=== PATIENT | male | born 2000 | race Caucasian/White ===

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

== ENCOUNTER 2020-02-10 15:40 | Outpatient (CLI) | payer OTHER | END 2020-02-10 15:41 | disposition EMS.NT | LOC: EMS 15:40 | PROVIDERS: ATTEND Surgery | DX: F41.9 Anxiety disorder, unspecified (principal); R10.9 Unspecified abdominal pain ==

== ENCOUNTER 2020-02-20 00:47 | Outpatient (CLI) | payer SELFPAY | END 2020-02-20 00:48 | disposition EMS.NT | LOC: EDSEX → EMS 00:47 | PROVIDERS: ATTEND Surgery | DX: F41.9 Anxiety disorder, unspecified (principal) ==

== ENCOUNTER 2020-02-20 14:25 | Outpatient (CLI) | payer MEDICAID | END 2020-02-20 14:26 | disposition critical access hospital (66) | LOC: EMS 14:25 | PROVIDERS: ATTEND Surgery | DX: K92.1 Melena (principal); R10.31 Right lower quadrant pain | CPT/HCPCS: A0425; A0429 ==

== ENCOUNTER 2020-02-20 14:45 | Emergency (ER) | payer MEDICAID ==
--- NOTE | 2020-02-20 14:56 | ED Physician Documentation ---
PD HPI ABD PAIN - Stated complaint Stated Complaint: BLOOD IN STOOL - Chief complaint Chief Complaint: Abd Pain - History obtained from History obtained from: Patient, EMS - History of Present Illness Timing - onset: Other (For the last 2 weeks she has had a small amount of bright red blood per rectum associated with hard stools. Mild lower abdominal pain. No fevers or chills. No nausea. She is never had this before. 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 : None HEENT: None Psych: Depression, Anxiety, Other Musculoskeletal: None Derm: None - Past Surgical History Past Surgical History: No - Present Medications Home Medications: Ambulatory Orders Medication Instructions Recorded Confirmed Melatonin 1 mg PO DAILY PM 02/11/18 04/26/18 Amantadine HCl [Amantadine] 100 mg PO BID 03/17/18 04/26/18 Gabapentin 300 mg PO BID 03/17/18 04/26/18 Bupropion HCl [Bupropion Xl] 150 mg PO DAILY 04/26/18 04/26/18 OLANZapine [Olanzapine] 5 mg PO QPM 04/26/18 04/26/18 Docusate Sodium 100 mg PO BID #120 capsule 02/20/20 - Allergies Allergies/Adverse Reactions: Allergies Allergy/AdvReac Type Severity Reaction Status Date / Time nut - unspecified Allergy Edema Verified 08/20/19 22:56 - Social History Does the pt smoke?: No Smoking Status: Never smoker Does the pt drink ETOH?: No Does the pt have substance abuse?: No - Immunizations Immunizations are current?: Yes - POLST Patient has POLST: No POLST Status: Full Code PD ED PE NORMAL - Vitals Vital signs reviewed: Yes - General General: Other (She is quite anxious with poor eye contact.) - HEENT HEENT: PERRL - Neck Neck: Supple, no meningeal sign, No bony TTP - Cardiac Cardiac: RRR, No murmur - Abdomen Abdomen: Soft, Non tender - Back Back: No CVA TTP, No spinal TTP - Derm Derm: Normal color, Warm and dry - Extremities Extremities: No edema, No calf tenderness / cord - Neuro Neuro: Alert and oriented X 3, No motor deficit, No sensory deficit, Normal speech - Psych Psych: Other (Very anxious with poor eye contact) Results - Vitals Vitals: Vital Signs - 24 hr 02/20/20 02/20/20 14:51 15:55 Temperature 36.8 C Heart Rate 109 H 73 Respiratory 18 22 Rate Blood Pressure 138/81 H 132/77 H O2 Saturation 100 100 Oxygen O2 Source Room air - Labs Labs: Laboratory Tests 02/20/20 02/20/20 02/20/20 15:10 15:10 15:10 WBC 7.3 RBC 5.14 Hgb 12.7 Hct 39.9 MCV 77.6 L MCH 24.7 L MCHC 31.8 L RDW 14.8 Plt Count 224 MPV 10.2 Neut # (Auto) 4.8 Lymph # (Auto) 1.7 [place] # (Auto) 0.4 Eos # (Auto) 0.3 Baso # (Auto) 0.1 Absolute Nucleated RBC 0.00 Nucleated RBC % 0.0 Sodium 137 Potassium 3.6 Chloride 106 Carbon Dioxide 20 L Anion Gap 11.0 BUN 7 Creatinine 0.8 Estimated GFR (MDRD) 92 Glucose 89 Calcium 9.1 Total Bilirubin 0.7 AST 17 ALT < 10 L Alkaline Phosphatase 56 Total Protein 7.8 Albumin 4.6 Globulin 3.2 Albumin/Globulin Ratio 1.4 Lipase 30 TSH Urine Color Urine Clarity Urine pH Ur Specific [place] Urine Protein Urine Glucose (UA) Urine Ketones Urine Occult Blood Urine Nitrite Urine Bilirubin Urine Urobilinogen Ur Leukocyte Esterase Ur Microscopic Review Urine Culture Comments Urine HCG, Qual Salicylates < 6.0 Urine Opiates Screen Ur Oxycodone Screen Urine Methadone Screen Ur Propoxyphene Screen Acetaminophen < 10 L Ur Barbiturates Screen Ur Tricyclics Screen Ur Phencyclidine Scrn Ur Amphetamine Screen U Methamphetamines Scrn U Benzodiazepines Scrn Urine Cocaine Screen U Cannabinoids Screen Ethyl Alcohol < 5.0 02/20/20 02/20/20 15:10 16:35 WBC RBC Hgb Hct MCV MCH MCHC RDW Plt Count MPV Neut # (Auto) Lymph # (Auto) [place] # (Auto) Eos # (Auto) Baso # (Auto) Absolute Nucleated RBC Nucleated RBC % Sodium Potassium Chloride Carbon Dioxide Anion Gap BUN Creatinine Estimated GFR (MDRD) Glucose Calcium Total Bilirubin AST ALT Alkaline Phosphatase Total Protein Albumin Globulin Albumin/Globulin Ratio Lipase TSH 1.99 Urine Color LT. YELLOW Urine Clarity CLEAR Urine pH 7.0 Ur Specific [place] <=1.005 Urine Protein NEGATIVE Urine Glucose (UA) NEGATIVE Urine Ketones NEGATIVE Urine Occult Blood NEGATIVE Urine Nitrite NEGATIVE Urine Bilirubin NEGATIVE Urine Urobilinogen 0.2 (NORMAL) Ur Leukocyte Esterase NEGATIVE Ur Microscopic Review NOT INDICATED Urine Culture Comments NOT INDICATED Urine HCG, Qual NEGATIVE Salicylates Urine Opiates Screen NEGATIVE Ur Oxycodone Screen NEGATIVE Urine Methadone Screen NEGATIVE Ur Propoxyphene Screen NEGATIVE Acetaminophen Ur Barbiturates Screen NEGATIVE Ur Tricyclics Screen NEGATIVE Ur Phencyclidine Scrn NEGATIVE Ur Amphetamine Screen NEGATIVE U Methamphetamines Scrn NEGATIVE U Benzodiazepines Scrn NEGATIVE Urine Cocaine Screen NEGATIVE U Cannabinoids Screen NEGATIVE Ethyl Alcohol PD MEDICAL DECISION MAKING - ED course ED course: This is a young woman with bright red blood per rectum, benign history. We will check blood work. It is associated with constipation so that is likely causative. I went to talk to her about discharging her and the follow-up plan. Despite already having had some Ativan she was having an overt panic attack. We talked about options for that. She is going to [facility] for intensive therapy but she does not feel like it is helping. She seems awfully dysfunctional and I will asked the social insurance analyst to talk to her about hospitalization. Subsequent to social work evaluation patient agreed to voluntary hospitalist for her at [facility] and cobras were completed. She is stable for transport for psychiatric care. Departure - Departure Disposition: 65 Psych Hosp/Unit DC/Xfer Clinical Impression: Hematochezia, Depression with anxiety Constipation Qualifiers: Constipation type: slow transit constipation Qualified Code(s): K59.01 - Slow transit constipation Condition: Stable Record reviewed to determine appropriate education?: Yes Instructions: ED Constipation Prescriptions: Docusate Sodium 100 mg PO BID #120 capsule Comments: Most cases of what you are describing are due to constipation. I am prescribing a stool softener and you need to drink plenty of water. Return for worsening symptoms. You will need to follow-up with your primary care physician for referral for colonoscopy.
[2020-02-20] MEDS: LORazepam 1 MG TABLET PO STA (14:59)
[2020-02-20 15:14] LABS: BASOPHILS # (AUTO) 0.1 10^3/uL (0.0-0.1); BASOPHILS % (AUTO) 0.8 %; EOSINOPHILS # (AUTO) 0.3 10^3/uL (0.0-0.7); EOSINOPHILS % (AUTO) 4.1 %; HGB - HEMOGLOBIN 12.7 g/dL (12.0-16.0); LYMPHOCYTES # (AUTO) 1.7 10^3/uL (1.5-3.5); LYMPHOCYTES % (AUTO) 23.8 %; MEAN CORPUSCULAR HEMOGLOBIN 24.7 pg (27.0-31.0); MEAN CORPUSCULAR HGB CONC 31.8 g/dL (32.0-36.0); MEAN CORPUSCULAR VOLUME 77.6 fL (81.0-99.0); MEAN PLATELET VOLUME 10.2 fL (7.4-11.4); MONOCYTES # (AUTO) 0.4 10^3/uL (0.0-1.0); MONOCYTES % (AUTO) 5.6 %; NEUTROPHILS # (AUTO) 4.8 10^3/uL (1.5-6.6); NEUTROPHILS % (AUTO) 65.6 %; PLT - PLATELET COUNT 224 10^3/uL (130-450); RED BLOOD COUNT 5.14 10^6/uL (4.70-6.10); RED CELL DISTRIBUTION WIDTH 14.8 % (12.0-15.0); WHITE BLOOD COUNT 7.3 x10^3/uL (4.8-10.8)
[2020-02-20 15:28] LABS: ALBUMIN 4.6 g/dL (3.2-5.5); ALBUMIN/GLOBULIN RATIO 1.4 (1.0-2.2); ALKALINE PHOSPHATASE 56 IU/L (42-121); ALT ALANINE AMINOTRANSFERASE < 10 IU/L (10-60); AST ASPARTATE AMINOTRANSFERASE 17 IU/L (10-42); BILIRUBIN,TOTAL 0.7 mg/dL (0.2-1.0); BUN - BLOOD UREA NITROGEN 7 mg/dL (6-20); CALCIUM 9.1 mg/dL (8.5-10.3); CARBON DIOXIDE - CO2 20 mmol/L (21-32); CHLORIDE 106 mmol/L (101-111); CREATININE 0.8 mg/dL (0.4-1.0); GLUCOSE 89 mg/dL (70-100); LIPASE 30 U/L (22-51); SODIUM 137 mmol/L (135-145); TOTAL PROTEIN 7.8 g/dL (6.7-8.2)
[2020-02-20 15:58] LABS: ACETAMINOPHEN < 10 ug/mL (10-30); SALICYLATE < 6.0 mg/dL
[2020-02-20] MEDS: OLANZapine 10 MG VIAL IM STA (16:01)
[2020-02-20 16:43] LABS: MUDS CUTOFF CONCENTRATIONS CUTOFF CONC BELOW:
[2020-02-20 16:50] LABS: BILIRUBIN,URINE NEGATIVE (NEGATIVE); GLUCOSE, URINE (UA) NEGATIVE (NEGATIVE); KETONES,URINE (UA) NEGATIVE (NEGATIVE); LEUKOCYTE ESTERASE, URINE NEGATIVE (NEGATIVE); NITRITE,URINE NEGATIVE (NEGATIVE); OCCULT BLOOD,URINE NEGATIVE (NEGATIVE); PROTEIN,URINE NEGATIVE (NEGATIVE); UROBILINOGEN,URINE 0.2 (NORMAL) E.U./dL (NORMAL)
[2020-02-20 16:59] LABS: AMPHETAMINE SCREEN,URINE NEGATIVE (NEGATIVE); BENZODIAZEPINES SCREEN, URINE NEGATIVE (NEGATIVE); CLARITY,URINE CLEAR (CLEAR); COCAINE SCREEN URINE NEGATIVE (NEGATIVE); HCG UR QUAL NEGATIVE; METHADONE SCREEN, URINE NEGATIVE (NEGATIVE); METHAMPHETAMINES SCREEN, URINE NEGATIVE (NEGATIVE); OPIATE SCREEN, URINE NEGATIVE (NEGATIVE); OXYCODONE SCREEN, URINE NEGATIVE (NEGATIVE); PROPOXYPHENE SCREEN, URINE NEGATIVE (NEGATIVE); TRICYCLIC ANTIDEPRESSANT,URINE NEGATIVE (NEGATIVE)
[2020-02-20 22:15] VITALS: BP 129/84
== END 2020-02-21 00:10 ==
LOC: EDSEX → EDUNIT# → ED 14:45
DX: K92.1 Melena (principal); F32.9 Major depressive disorder, single episode, unspecified; F41.9 Anxiety disorder, unspecified; K59.01 Slow transit constipation
CPT/HCPCS: 36415; 80053; 80306; 80307; 80320; 80329; 81003; 81025; 83690; 84443; 85025; 96372; 99283; 99285; J8499; 81001; 87086

== ENCOUNTER 2020-07-14 21:58 | Outpatient (CLI) | payer MEDICAID | END 2020-07-14 21:59 | disposition critical access hospital (66) | LOC: EMS 21:58 | PROVIDERS: ATTEND Surgery | DX: R46.89 Other symptoms and signs involving appearance and behavior (principal) | CPT/HCPCS: A0425; A0429; A0999 ==

== ENCOUNTER 2020-07-14 22:03 | Emergency (ER) | payer MEDICAID ==
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
[2020-07-14] MEDS ORDERED: LORazepam 1 MG TABLET PO STA (22:30)
[2020-07-14] MEDS ORDERED: diphenhydrAMINE INJ 50 MG/ML VIAL IM STA (23:09)
[2020-07-14] MEDS ORDERED: HALOPERIDOL 5 MG/ML VIAL IM STA (23:09)
[2020-07-14] MEDS ORDERED: LORazepam 2 MG/ML VIAL IM STA (23:09)
[2020-07-14 23:27] LABS: MUDS CUTOFF CONCENTRATIONS CUTOFF CONC BELOW:
[2020-07-14 23:28] LABS: BILIRUBIN,URINE NEGATIVE (NEGATIVE); GLUCOSE, URINE (UA) NEGATIVE (NEGATIVE); KETONES,URINE (UA) NEGATIVE (NEGATIVE); LEUKOCYTE ESTERASE, URINE NEGATIVE (NEGATIVE); NITRITE,URINE NEGATIVE (NEGATIVE); OCCULT BLOOD,URINE NEGATIVE (NEGATIVE); PH,URINE 6.5 PH (5.0-7.5); PROTEIN,URINE NEGATIVE (NEGATIVE); UROBILINOGEN,URINE 0.2 (NORMAL) E.U./dL (NORMAL)
[2020-07-14 23:30] LABS: CLARITY,URINE CLEAR (CLEAR)
[2020-07-14 23:40] LABS: AMPHETAMINE SCREEN,URINE NEGATIVE (NEGATIVE); BENZODIAZEPINES SCREEN, URINE NEGATIVE (NEGATIVE); COCAINE SCREEN URINE NEGATIVE (NEGATIVE); METHADONE SCREEN, URINE NEGATIVE (NEGATIVE); METHAMPHETAMINES SCREEN, URINE NEGATIVE (NEGATIVE); OPIATE SCREEN, URINE NEGATIVE (NEGATIVE); OXYCODONE SCREEN, URINE NEGATIVE (NEGATIVE); PROPOXYPHENE SCREEN, URINE NEGATIVE (NEGATIVE); TRICYCLIC ANTIDEPRESSANT,URINE POSITIVE (NEGATIVE)
[2020-07-15 00:24] LABS: HGB - HEMOGLOBIN 11.8 g/dL (12.0-16.0); LYMPHOCYTES # (AUTO) 1.8 10^3/uL (1.5-3.5); LYMPHOCYTES % (AUTO) 25.7 %; MEAN CORPUSCULAR HGB CONC 33.4 g/dL (32.0-36.0); MEAN CORPUSCULAR VOLUME 74.8 fL (81.0-99.0); MEAN PLATELET VOLUME 9.3 fL (7.9-10.8); MONOCYTES # (AUTO) 0.5 10^3/uL (0.0-1.0); MONOCYTES % (AUTO) 7.5 %; NEUTROPHILS # (AUTO) 4.6 10^3/uL (1.5-6.6); NEUTROPHILS % (AUTO) 66.5 %; PLT - PLATELET COUNT 197 10^3/uL (130-450); RED BLOOD COUNT 4.72 10^6/uL (4.20-5.40); RED CELL DISTRIBUTION WIDTH 13.8 % (12.0-15.0); WHITE BLOOD COUNT 6.9 x10^3/uL (4.8-10.8)
[2020-07-15 00:38] LABS: ACETAMINOPHEN < 10 ug/mL (10-30); ALBUMIN 4.2 g/dL (3.2-5.5); ALBUMIN/GLOBULIN RATIO 1.8 (1.0-2.2); ALKALINE PHOSPHATASE 45 IU/L (42-121); ALT ALANINE AMINOTRANSFERASE < 10 IU/L (10-60); AST ASPARTATE AMINOTRANSFERASE 12 IU/L (10-42); BILIRUBIN,TOTAL 0.2 mg/dL (0.2-1.0); BUN - BLOOD UREA NITROGEN 8 mg/dL (6-20); CARBON DIOXIDE - CO2 22 mmol/L (21-32); CHLORIDE 109 mmol/L (101-111); CK- CREATINE KINASE 92 IU/L (22-269); CREATININE 0.7 mg/dL (0.4-1.0); GLUCOSE 92 mg/dL (70-100); LIPASE 28 U/L (22-51); SALICYLATE < 6.0 mg/dL; SODIUM 139 mmol/L (135-145); TOTAL PROTEIN 6.5 g/dL (6.7-8.2)
[2020-07-15 06:44] VITALS: BP 115/67
== END 2020-07-15 07:03 | disposition home or self-care (01) ==
LOC: EDSEX → EDUNIT# → ED 22:03
DX: F41.9 Anxiety disorder, unspecified (principal); F91.9 Conduct disorder, unspecified; F84.0 Autistic disorder
CPT/HCPCS: 36415; 80053; 80306; 80307; 80320; 80329; 81003; 82550; 83690; 84443; 85025; 96372; 99281; 99284; J1200; J2060; J8499; 81001; 87086

== ENCOUNTER 2021-05-13 01:29 | Outpatient (CLI) | payer MEDICAID | END 2021-05-13 01:30 | disposition critical access hospital (66) | LOC: EMS 01:29 | DX: R00.0 Tachycardia, unspecified (principal); R06.02 Shortness of breath; F41.9 Anxiety disorder, unspecified | CPT/HCPCS: A0425; A0427; A0999 ==

== ENCOUNTER 2021-05-13 01:42 | Emergency (ER) | payer MEDICAID ==
--- NOTE | 2021-05-13 01:55 | ED Physician Documentation ---
History of Present Illness - Stated complaint Stated Complaint: ANXIETY/RHR - Chief complaint Chief Complaint: General - History obtained from History obtained from: Patient - History of Present Illness Timing: Enter time (00:30), Today Pain level max: 0 Pain level now: 0 Improved by: nothing Worsened by: no exacerbating factors - Additonal information Additional information: presents due to sudden onset rapid palpitations at approximately 12:30 this morning while getting ready for bed. Mild dyspnea. Has had similar episodes in the past and she feels this is due to anxiety. Review of Systems Constitutional: denies: Fever Cardiac: reports: Palpitations. denies: Chest pain / pressure, Pedal edema, Calf pain Respiratory: reports: Dyspnea. 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 HEENT: None Psych: Depression, Anxiety, Panic attacks, ADD/ADHD, Other Musculoskeletal: None Derm: None - Past Surgical History Past Surgical History: No - Present Medications Home Medications: Ambulatory Orders Medication Instructions Recorded Confirmed Melatonin 1 mg PO DAILY PM 02/11/18 04/26/18 Amantadine HCl [Amantadine] 100 mg PO BID 03/17/18 04/26/18 Gabapentin 300 mg PO BID 03/17/18 04/26/18 OLANZapine [Olanzapine] 5 mg PO QPM 04/26/18 04/26/18 buPROPion HCL [Bupropion Xl] 150 mg PO DAILY 04/26/18 04/26/18 Docusate Sodium 100 mg PO BID #120 capsule 02/20/20 QUEtiapine [SEROquel] 07/14/20 - Allergies Allergies/Adverse Reactions: Allergies Allergy/AdvReac Type Severity Reaction Status Date / Time nut - unspecified Allergy Edema Verified 05/13/21 01:45 - Social History Does the pt smoke?: No Smoking Status: Never smoker Does the pt drink ETOH?: No Does the pt have substance abuse?: Yes Substance Use and Type: Marijuana - Immunizations Immunizations are current?: Yes - POLST Patient has POLST: No POLST Status: Full Code PD ED PE NORMAL - Vitals Vital signs reviewed: Yes - General General: Alert and oriented X 3, No acute distress, Well developed/nourished - HEENT HEENT: Moist mucous membranes - Neck Neck: Supple, no meningeal sign - Cardiac Cardiac: No murmur, No gallop, No rub - Respiratory Respiratory: No respiratory distress, Clear bilaterally - Abdomen Abdomen: Soft, Non tender - Extremities Extremities: No edema PD ED PE EXPANDED - Cardiac Cardiac: Tachy, Regular Rhythm Results - Vitals Vitals: Oxygen O2 Source Room air - EKG (time done) No standard instances Rate: Rate (enter#) (103), Tachy Rhythm: Sinus tachycardia [place] Lin: Normal Intervals: Normal [place] QRS: Normal Ischemia: Normal ST segments - Labs Labs: Laboratory Tests 05/13/21 05/13/21 05/13/21 02:30 02:30 02:30 WBC 3.1 L RBC 4.40 Hgb 11.3 L Hct 34.0 L MCV 77.3 L MCH 25.7 L MCHC 33.2 RDW 13.4 Plt Count 150 MPV 9.6 Neut # (Auto) 1.9 Lymph # (Auto) 1.0 [place] # (Auto) 0.2 Eos # (Auto) 0.0 Baso # (Auto) 0.0 Absolute Nucleated RBC 0.00 Nucleated RBC % 0.0 Sodium 137 Potassium 3.6 Chloride 106 Carbon Dioxide 23 Anion Gap 8.0 BUN 13 Creatinine 0.9 Estimated GFR (MDRD) 80 L Glucose 111 H Calcium 8.2 L TSH 3.30 PD MEDICAL DECISION MAKING - ED course Complexity details: reviewed results, re-evaluated patient, considered differential, d/w patient Departure - Departure Disposition: 01 Home, Self Care Clinical Impression: Anxiety, Tachycardia Condition: Good Instructions: ED Panic Attack Comments: Follow up with your primary care provider; further testing might be necessary regarding the fast heart rate. Discharge Date/Time: 05/13/21 03:59
[2021-05-13] MEDS ORDERED: SODIUM CHLORIDE 0.9% 1,000 ML IV STA (02:14)
[2021-05-13] MEDS ORDERED: LORazepam 2 MG/ML VIAL IVP STA (02:14)
[2021-05-13 02:37] LABS: HGB - HEMOGLOBIN 11.3 g/dL (12.0-16.0); LYMPHOCYTES % (AUTO) 32.9 %; MEAN CORPUSCULAR HEMOGLOBIN 25.7 pg (27.0-31.0); MEAN CORPUSCULAR HGB CONC 33.2 g/dL (32.0-36.0); MEAN CORPUSCULAR VOLUME 77.3 fL (81.0-99.0); MEAN PLATELET VOLUME 9.6 fL (7.9-10.8); MONOCYTES # (AUTO) 0.2 10^3/uL (0.0-1.0); MONOCYTES % (AUTO) 6.4 %; NEUTROPHILS # (AUTO) 1.9 10^3/uL (1.5-6.6); NEUTROPHILS % (AUTO) 60.4 %; PLT - PLATELET COUNT 150 10^3/uL (130-450); RED CELL DISTRIBUTION WIDTH 13.4 % (12.0-15.0); WHITE BLOOD COUNT 3.1 x10^3/uL (4.8-10.8)
[2021-05-13 02:43] LABS: CALCIUM 8.2 mg/dL (8.5-10.3); CREATININE 0.9 mg/dL (0.4-1.0); POTASSIUM 3.6 mmol/L (3.5-5.0)
[2021-05-13 03:33] VITALS: BP 113/73
== END 2021-05-13 03:59 | disposition home or self-care (01) ==
LOC: EDUNIT# → ED 01:42
DX: R00.0 Tachycardia, unspecified (principal); F41.9 Anxiety disorder, unspecified
CPT/HCPCS: 36415; 80048; 84443; 85025; 93005; 96374; 99283; 99284; J2060

== ENCOUNTER 2021-06-22 08:00 | Outpatient (CLI) | payer MEDICAID ==
[2021-06-22 09:05] LABS: MUDS CUTOFF CONCENTRATIONS CUTOFF CONC BELOW:
[2021-06-22 11:43] LABS: HCT - HEMATOCRIT 36.3 % (37.0-47.0); HGB - HEMOGLOBIN 11.9 g/dL (12.0-16.0); LYMPHOCYTES # (AUTO) 1.4 10^3/uL (1.5-3.5); LYMPHOCYTES % (AUTO) 40.3 %; MEAN CORPUSCULAR HEMOGLOBIN 25.5 pg (27.0-31.0); MEAN CORPUSCULAR HGB CONC 32.8 g/dL (32.0-36.0); MEAN CORPUSCULAR VOLUME 77.9 fL (81.0-99.0); MEAN PLATELET VOLUME 10.3 fL (7.9-10.8); MONOCYTES # (AUTO) 0.3 10^3/uL (0.0-1.0); MONOCYTES % (AUTO) 8.5 %; NEUTROPHILS # (AUTO) 1.8 10^3/uL (1.5-6.6); NEUTROPHILS % (AUTO) 51.2 %; PLT - PLATELET COUNT 165 10^3/uL (130-450); RED BLOOD COUNT 4.66 10^6/uL (4.20-5.40); RED CELL DISTRIBUTION WIDTH 13.7 % (12.0-15.0); WHITE BLOOD COUNT 3.5 x10^3/uL (4.8-10.8)
[2021-06-22 11:57] LABS: THC CANNABINOID SCREEN, URINE POSITIVE (NEGATIVE)
[2021-06-22 11:58] LABS: AMPHETAMINE SCREEN,URINE NEGATIVE (NEGATIVE); BARBITURATE SCREEN,UR NEGATIVE (NEGATIVE); BENZODIAZEPINES SCREEN, URINE NEGATIVE (NEGATIVE); COCAINE SCREEN URINE NEGATIVE (NEGATIVE); METHADONE SCREEN, URINE NEGATIVE (NEGATIVE); METHAMPHETAMINES SCREEN, URINE NEGATIVE (NEGATIVE); OPIATE SCREEN, URINE NEGATIVE (NEGATIVE); OXYCODONE SCREEN, URINE NEGATIVE (NEGATIVE); PROPOXYPHENE SCREEN, URINE NEGATIVE (NEGATIVE); TRICYCLIC ANTIDEPRESSANT,URINE POSITIVE (NEGATIVE)
[2021-06-22 12:32] LABS: ALBUMIN 4.1 g/dL (3.2-5.5); ALBUMIN/GLOBULIN RATIO 1.6 (1.0-2.2); ALKALINE PHOSPHATASE 44 IU/L (42-121); ALT ALANINE AMINOTRANSFERASE < 10 IU/L (10-60); AST ASPARTATE AMINOTRANSFERASE 14 IU/L (10-42); BILIRUBIN,TOTAL 0.4 mg/dL (0.2-1.0); BUN - BLOOD UREA NITROGEN 10 mg/dL (6-20); CALCIUM 9.2 mg/dL (8.5-10.3); CARBON DIOXIDE - CO2 24 mmol/L (21-32); CHLORIDE 106 mmol/L (101-111); CREATININE 0.8 mg/dL (0.4-1.0); GFR - MDRD 91 (>89); GLUCOSE 84 mg/dL (70-100); POTASSIUM 3.7 mmol/L (3.5-5.0); SODIUM 140 mmol/L (135-145); TOTAL PROTEIN 6.7 g/dL (6.7-8.2)
[2021-06-22 12:33] LABS: THYROID STIMULATING HORMONE 4.94 uIU/mL (0.34-5.60)
== END 2021-06-22 23:59 | disposition home or self-care (01) ==
LOC: LAB.WCP 08:00
PROVIDERS: ATTEND Family Medicine
DX: R00.2 Palpitations (principal)
CPT/HCPCS: 36415; 80053; 80306; 83735; 84443; 85025

== ENCOUNTER 2021-06-29 16:14 | Outpatient (CLI) | payer MEDICAID | END 2021-06-29 16:15 | disposition critical access hospital (66) | LOC: EMS 16:14 | DX: T23.052A Burn of unspecified degree of left palm, initial encounter (principal); T23.042A Burn of unspecified degree of multiple left fingers (nail), including thumb, initial encounter; X15.3XXA Contact with hot saucepan or skillet, initial encounter; Y93.G3 Activity, cooking and baking; Y92.000 Kitchen of unspecified non-institutional (private) residence as the place of occurrence of the external cause | CPT/HCPCS: A0425; A0427; A0999 ==

== ENCOUNTER 2021-06-29 16:29 | Emergency (ER) | payer MEDICAID ==
[2021-06-29] MEDS ORDERED: BACITRACIN ZINC OINT 1 PACKET TOP STA (16:32)
[2021-06-29] MEDS ORDERED: HYDROmorphone 2 MG/ML VIAL IVP STA (16:32)
[2021-06-29] MEDS ORDERED: KETOROLAC 15 MG/ML VIAL IVP STA (16:32)
[2021-06-29] MEDS ORDERED: TETANUS/DIPHTHERIA/PERTUSSIS 0.5 ML SYRINGE IM ONE (16:32)
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
[2021-06-29 17:37] VITALS: BP 134/84
== END 2021-06-29 17:37 | disposition home or self-care (01) ==
LOC: EDUNIT# → ED 16:29
DX: T23.252A Burn of second degree of left palm, initial encounter (principal); X15.3XXA Contact with hot saucepan or skillet, initial encounter; Y93.G3 Activity, cooking and baking; Z23 Encounter for immunization
CPT/HCPCS: 90471; 90715; 96374; 96375; 99283; A9270; J1170

== ENCOUNTER 2021-08-26 12:05 | Outpatient (CLI) | payer MEDICAID | END 2021-08-26 12:06 | disposition critical access hospital (66) | LOC: EMS 12:05 | DX: Z00.8 Encounter for other general examination (principal); R44.3 Hallucinations, unspecified | CPT/HCPCS: A0425; A0429; A0999 ==

== ENCOUNTER 2021-08-26 12:25 | Emergency (ER) | payer MEDICAID ==
--- NOTE | 2021-08-26 12:51 | ED Physician Documentation ---
History of Present Illness - Stated complaint Stated Complaint: MHE - Chief complaint Chief Complaint: General - Additonal information Additional information: Sawyer is a 20-year-old female with a past medical history of autism, anxiety and behavioral disorder who presents stating that she just cannot stop hitting herself and damaging things. She broke her phone and states that she has been scratching her arms and hitting herself in the face and her mom told her she needed to go to the hospital. She states her mom is refusing to have her come back home and she does not know what to do. She She is not suicidal but cannot stop hitting herself. She has required inpatient mental health treatment in the past and is followed outpatient by mental health provider. She is on Seroquel and guanfacine which she said Is compliant with. Denies any other drugs or alcohol. States that she is safe at home and no one is hurting her, she is scratching and hitting herself. 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 : None HEENT: None Psych: Depression, Anxiety, Bipolar disorder, Panic attacks, ADD/ADHD, Other Musculoskeletal: None Derm: None Other Past Medical History: autism - Past Surgical History Past Surgical History: No - Present Medications Home Medications: Ambulatory Orders Medication Instructions Recorded Confirmed Ferrous Sulfate 325 mg PO DAILY 08/26/21 08/26/21 Guanfacine HCl [Intuniv] 1 mg PO BID 08/26/21 08/26/21 LORazepam [Ativan] 0.5 mg PO BID #6 tablet 08/26/21 Melatonin 5 mg PO DAILY 08/26/21 08/26/21 Quetiapine Fumarate [Seroquel] 200 mg PO HS 08/26/21 08/26/21 - Allergies Allergies/Adverse Reactions: Allergies Allergy/AdvReac Type Severity Reaction Status Date / Time nut - unspecified Allergy Edema Verified 08/26/21 12:40 - Social History Does the pt smoke?: No Smoking Status: Never smoker Does the pt drink ETOH?: No Does the pt have substance abuse?: Yes Substance Use and Type: Marijuana - Immunizations Immunizations are current?: Yes - POLST Patient has POLST: No POLST Status: Full Code PD ED PE NORMAL - Vitals Vital signs reviewed: Yes - General General: Alert and oriented X 3, Well developed/nourished, Other (Chanda is awake and alert and conversant though crying hysterically.) - HEENT HEENT: Atraumatic, Moist mucous membranes - Neck Neck: Supple, no meningeal sign, No JVD - Cardiac Cardiac: RRR (Tachycardic), No murmur - Respiratory Respiratory: No respiratory distress, Clear bilaterally - Abdomen Abdomen: Normal bowel sounds, Soft, Non tender, Non distended - Derm Derm: Normal color, Warm and dry, Other (Scratch and bite hammonds on her arms and hands) - Extremities Extremities: No deformity, No tenderness to palpate, Normal ROM s pain, No edema - Neuro Neuro: Alert and oriented X 3 Eye Opening: Spontaneous Motor: Obeys Commands Verbal: Oriented GCS Score: 15 - Psych Psych: Other (Anxious, crying and difficult to redirect.) Results - Vitals Vitals: Vital Signs - 24 hr 08/26/21 08/26/21 12:40 13:44 Temperature 36.2 C L Heart Rate 132 H 96 Respiratory 24 17 Rate Blood Pressure 130/90 H 113/75 O2 Saturation 100 95 Oxygen O2 Source Room air - Labs Labs: Laboratory Tests 08/26/21 08/26/21 08/26/21 12:56 12:56 12:56 WBC 4.0 L RBC 4.79 Hgb 12.4 Hct 36.4 L MCV 76.0 L MCH 25.9 L MCHC 34.1 RDW 13.4 Plt Count 162 MPV 9.8 Neut # (Auto) 2.8 Lymph # (Auto) 0.9 L [place] # (Auto) 0.3 Eos # (Auto) 0.0 Baso # (Auto) 0.0 Absolute Nucleated RBC 0.00 Nucleated RBC % 0.0 Sodium 140 Potassium 3.2 L Chloride 110 Carbon Dioxide 20 L Anion Gap 10.0 BUN 9 Creatinine 0.8 Estimated GFR (MDRD) 91 Glucose 95 Calcium 9.3 Total Bilirubin 0.4 AST 13 ALT < 10 L Alkaline Phosphatase 40 L Total Protein 7.1 Albumin 4.5 Globulin 2.6 Albumin/Globulin Ratio 1.7 Lipase 31 TSH 4.13 Urine Color Urine Clarity Urine pH Ur Specific [place] Urine Protein Urine Glucose (UA) Urine Ketones Urine Occult Blood Urine Nitrite Urine Bilirubin Urine Urobilinogen Ur Leukocyte Esterase Ur Microscopic Review Urine Culture Comments Urine HCG, Qual Salicylates < 6.0 Urine Opiates Screen Ur Oxycodone Screen Urine Methadone Screen Ur Propoxyphene Screen Acetaminophen < 10 L Ur Barbiturates Screen Ur Tricyclics Screen Ur Phencyclidine Scrn Ur Amphetamine Screen U Methamphetamines Scrn U Benzodiazepines Scrn Urine Cocaine Screen U Cannabinoids Screen Ethyl Alcohol < 5.0 08/26/21 13:55 WBC RBC Hgb Hct MCV MCH MCHC RDW Plt Count MPV Neut # (Auto) Lymph # (Auto) [place] # (Auto) Eos # (Auto) Baso # (Auto) Absolute Nucleated RBC Nucleated RBC % Sodium Potassium Chloride Carbon Dioxide Anion Gap BUN Creatinine Estimated GFR (MDRD) Glucose Calcium Total Bilirubin AST ALT Alkaline Phosphatase Total Protein Albumin Globulin Albumin/Globulin Ratio Lipase TSH Urine Color YELLOW Urine Clarity CLEAR Urine pH 6.5 Ur Specific [place] 1.010 Urine Protein NEGATIVE Urine Glucose (UA) NEGATIVE Urine Ketones NEGATIVE Urine Occult Blood NEGATIVE Urine Nitrite NEGATIVE Urine Bilirubin NEGATIVE Urine Urobilinogen 0.2 (NORMAL) Ur Leukocyte Esterase NEGATIVE Ur Microscopic Review NOT INDICATED Urine Culture Comments NOT INDICATED Urine HCG, Qual NEGATIVE Salicylates Urine Opiates Screen NEGATIVE Ur Oxycodone Screen NEGATIVE Urine Methadone Screen NEGATIVE Ur Propoxyphene Screen NEGATIVE Acetaminophen Ur Barbiturates Screen NEGATIVE Ur Tricyclics Screen POSITIVE H Ur Phencyclidine Scrn NEGATIVE Ur Amphetamine Screen NEGATIVE U Methamphetamines Scrn NEGATIVE U Benzodiazepines Scrn NEGATIVE Urine Cocaine Screen NEGATIVE U Cannabinoids Screen NEGATIVE Ethyl Alcohol PD MEDICAL DECISION MAKING - ED course Complexity details: d/w patient ED course: This is a 20-year-old female who has a past medical history of anxiety and autism and presented with self-harm behavior including scratching, hitting and biting self. She is not suicidal. She received 1 mg of Ativan p.o. and was able to calm down. Social work talked with patient's mother who states that patient is welcome back home and she was just working on setting boundaries with the patient. The patient discussed this with case management social worker and is agreeable to return home, denies suicidal ideation and has safety plan with the case management social worker. She has close follow-up with her outpatient mental health team. Patient will be discharged home to the care of her mother. I have given her a few days of as needed Ativan for exacerbations of behavior only. Cautioned on potential side effects and dependency. Departure - Departure Disposition: 01 Home, Self Care Clinical Impression: Behavioral disorder Condition: Good Prescriptions: LORazepam [Ativan] 0.5 mg PO BID #6 tablet Comments: You presented after some behavioral issues, but after talking with our case management social worker and receiving one dose of ativan you have been very calm and appropriate. You are being discharged home w/ mom after barriers and behavior modification discussed. Please follow up with your counselor and regular treatment team in the next week. Discharge Date/Time: 08/26/21 14:50
[2021-08-26] MEDS ORDERED: LORazepam 0.5 MG TABLET SL SCH (13:00)
[2021-08-26 13:02] LABS: HCT - HEMATOCRIT 36.4 % (37.0-47.0); HGB - HEMOGLOBIN 12.4 g/dL (12.0-16.0); LYMPHOCYTES # (AUTO) 0.9 10^3/uL (1.5-3.5); LYMPHOCYTES % (AUTO) 22.9 %; MEAN CORPUSCULAR HEMOGLOBIN 25.9 pg (27.0-31.0); MEAN CORPUSCULAR HGB CONC 34.1 g/dL (32.0-36.0); MEAN PLATELET VOLUME 9.8 fL (7.9-10.8); MONOCYTES # (AUTO) 0.3 10^3/uL (0.0-1.0); MONOCYTES % (AUTO) 6.5 %; NEUTROPHILS # (AUTO) 2.8 10^3/uL (1.5-6.6); NEUTROPHILS % (AUTO) 70.4 %; PLT - PLATELET COUNT 162 10^3/uL (130-450); RED BLOOD COUNT 4.79 10^6/uL (4.20-5.40); RED CELL DISTRIBUTION WIDTH 13.4 % (12.0-15.0)
[2021-08-26 13:17] LABS: ACETAMINOPHEN < 10 ug/mL (10-30); ALBUMIN 4.5 g/dL (3.2-5.5); ALBUMIN/GLOBULIN RATIO 1.7 (1.0-2.2); ALKALINE PHOSPHATASE 40 IU/L (42-121); ALT ALANINE AMINOTRANSFERASE < 10 IU/L (10-60); AST ASPARTATE AMINOTRANSFERASE 13 IU/L (10-42); BILIRUBIN,TOTAL 0.4 mg/dL (0.2-1.0); BUN - BLOOD UREA NITROGEN 9 mg/dL (6-20); CALCIUM 9.3 mg/dL (8.5-10.3); CARBON DIOXIDE - CO2 20 mmol/L (21-32); CHLORIDE 110 mmol/L (101-111); CREATININE 0.8 mg/dL (0.4-1.0); ETOH - ETHANOL < 5.0 mg/dL; GFR - MDRD 91 (>89); GLUCOSE 95 mg/dL (70-100); LIPASE 31 U/L (22-51); POTASSIUM 3.2 mmol/L (3.5-5.0); SALICYLATE < 6.0 mg/dL; SODIUM 140 mmol/L (135-145); TOTAL PROTEIN 7.1 g/dL (6.7-8.2)
[2021-08-26 13:45] VITALS: BP 113/75
[2021-08-26 13:57] LABS: MUDS CUTOFF CONCENTRATIONS CUTOFF CONC BELOW:
[2021-08-26] MEDS ORDERED: POTASSIUM CHLORIDE 20 MEQ/15 ML UDC PO ONE (14:04)
[2021-08-26 14:07] LABS: BILIRUBIN,URINE NEGATIVE (NEGATIVE); GLUCOSE, URINE (UA) NEGATIVE (NEGATIVE); KETONES,URINE (UA) NEGATIVE (NEGATIVE); LEUKOCYTE ESTERASE, URINE NEGATIVE (NEGATIVE); NITRITE,URINE NEGATIVE (NEGATIVE); OCCULT BLOOD,URINE NEGATIVE (NEGATIVE); PH,URINE 6.5 PH (5.0-7.5); PROTEIN,URINE NEGATIVE (NEGATIVE); UROBILINOGEN,URINE 0.2 (NORMAL) E.U./dL (NORMAL)
[2021-08-26 14:12] LABS: CLARITY,URINE CLEAR (CLEAR); HCG UR QUAL NEGATIVE
[2021-08-26 14:17] LABS: AMPHETAMINE SCREEN,URINE NEGATIVE (NEGATIVE); BARBITURATE SCREEN,UR NEGATIVE (NEGATIVE); BENZODIAZEPINES SCREEN, URINE NEGATIVE (NEGATIVE); COCAINE SCREEN URINE NEGATIVE (NEGATIVE); METHADONE SCREEN, URINE NEGATIVE (NEGATIVE); METHAMPHETAMINES SCREEN, URINE NEGATIVE (NEGATIVE); OPIATE SCREEN, URINE NEGATIVE (NEGATIVE); OXYCODONE SCREEN, URINE NEGATIVE (NEGATIVE); PROPOXYPHENE SCREEN, URINE NEGATIVE (NEGATIVE); THC CANNABINOID SCREEN, URINE NEGATIVE (NEGATIVE); TRICYCLIC ANTIDEPRESSANT,URINE POSITIVE (NEGATIVE)
== END 2021-08-26 14:50 | disposition home or self-care (01) ==
LOC: EDBD → EDUNIT# → SUPCPDRO 12:25 → ED 12:25
DX: F41.9 Anxiety disorder, unspecified (principal); F84.0 Autistic disorder
CPT/HCPCS: 36415; 80053; 80306; 80307; 80320; 80329; 81003; 81025; 83690; 84443; 85025; 99283; A9270; 81001; 87086

== ENCOUNTER 2022-01-17 10:06 | Outpatient (CLI) | payer MEDICAID ==
[2022-01-17 18:18] LABS: HCT - HEMATOCRIT 40.6 % (37.0-47.0); HGB - HEMOGLOBIN 13.2 g/dL (12.0-16.0); LYMPHOCYTES # (AUTO) 1.5 10^3/uL (1.5-3.5); LYMPHOCYTES % (AUTO) 37.2 %; MEAN CORPUSCULAR HEMOGLOBIN 25.8 pg (27.0-31.0); MEAN CORPUSCULAR HGB CONC 32.5 g/dL (32.0-36.0); MEAN CORPUSCULAR VOLUME 79.5 fL (81.0-99.0); MEAN PLATELET VOLUME 10.7 fL (7.9-10.8); MONOCYTES # (AUTO) 0.3 10^3/uL (0.0-1.0); MONOCYTES % (AUTO) 7.5 %; NEUTROPHILS # (AUTO) 2.3 10^3/uL (1.5-6.6); NEUTROPHILS % (AUTO) 55.1 %; PLT - PLATELET COUNT 195 10^3/uL (130-450); RED BLOOD COUNT 5.11 10^6/uL (4.20-5.40); RED CELL DISTRIBUTION WIDTH 13.4 % (12.0-15.0); WHITE BLOOD COUNT 4.1 x10^3/uL (4.8-10.8)
[2022-01-17 18:26] LABS: FECAL OCCULT BLOOD (FIT) NEGATIVE (NEGATIVE)
[2022-01-17 18:31] LABS: ALBUMIN 4.6 g/dL (3.2-5.5); ALBUMIN/GLOBULIN RATIO 1.6 (1.0-2.2); ALKALINE PHOSPHATASE 44 IU/L (42-121); ALT ALANINE AMINOTRANSFERASE 11 IU/L (10-60); AST ASPARTATE AMINOTRANSFERASE 14 IU/L (10-42); BILIRUBIN,TOTAL < 0.2 mg/dL (0.2-1.0); BUN - BLOOD UREA NITROGEN 8 mg/dL (6-20); CALCIUM 9.4 mg/dL (8.5-10.3); CARBON DIOXIDE - CO2 25 mmol/L (21-32); CHLORIDE 104 mmol/L (101-111); CREATININE 0.8 mg/dL (0.4-1.0); GFR - MDRD 91 (>89); GLUCOSE 80 mg/dL (70-100); LIPASE 35 U/L (22-51); POTASSIUM 4.2 mmol/L (3.5-5.0); SODIUM 137 mmol/L (135-145); TOTAL PROTEIN 7.4 g/dL (6.7-8.2)
[2022-01-17 19:51] LABS: HCG,QUALITATIVE BLOOD NEGATIVE
== END 2022-01-17 10:07 | disposition home or self-care (01) ==
LOC: LAB.N 10:06
PROVIDERS: ATTEND Family Medicine
DX: R10.9 Unspecified abdominal pain (principal); K92.1 Melena
CPT/HCPCS: 36415; 80053; 81599; 82274; 83516; 83690; 84703; 85025; 86231

== ENCOUNTER 2022-01-23 12:26 | Outpatient (CLI) | payer MEDICAID ==
[2022-01-23] MEDS ORDERED: IOVERSOL 320 50 ML VIAL ONE (12:38)
[2022-01-23] MEDS ORDERED: IOVERSOL 320 100 ML VIAL IVP ONE ×2 (12:38→16:06)
[2022-01-23] MEDS ORDERED: IOVERSOL 320 50 ML VIAL PO ONE (16:06)
--- NOTE | 2022-01-23 17:18 | CT Report ---
PROCEDURE: Abdomen/Pelvis W INDICATIONS: ABD PAIN, BLOOD IN STOOL CONTRAST: IV CONTRAST: Optiray 320 ml: 100 PO CONTRAST: Optiray 320 ml50 TECHNIQUE: After the administration of oral and intravenous contrast, 5 mm thick sections acquired from the diap hragms to the symphysis. 5 mm thick coronal and sagittal reformats were acquired. For radiation dos e reduction, the following was used: automated exposure control, adjustment of mA and/or kV accordin g to patient size. COMPARISON: None. FINDINGS: Image quality: Excellent. ABDOMEN: Lung bases: Lung bases are clear. Heart size is normal. Solid organs: Mild fatty infiltration is seen in the liver adjacent to the falciform ligament. The l iver is normal in size. Gallbladder appears normal. Biliary system is non dilated. Pancreas enhances normally. Spleen is normal in size. No adrenal nodules. Kidneys demonstrate normal size and enhance ment, without hydronephrosis. Peritoneum and bowel: There is diffuse bowel wall thickening in the colon extending from the ascendin g colon to the proximal sigmoid colon. No definite pericolonic fat stranding. The appendix is not def initely visualized, but no secondary signs of acute appendicitis are seen. No free fluid or air. Nodes and vessels: No retroperitoneal or mesenteric adenopathy by size criteria. Aorta and inferior vena cava are normal in size. Miscellaneous: No ventral hernias. PELVIS: Genitourinary: Bladder wall thickness is normal. Miscellaneous: No inguinal hernias or adenopathy. Bones: No suspicious bony lesions. No vertebral body compression fractures. IMPRESSION: Diffuse bowel wall thickening in the colon from the ascending colon to the proximal sigm oid colon is suspicious for a nonspecific colitis. Reviewed by: Terence Lopez MD on 01/23/2022 4:17 PM [place] Approved by: Terence Lopez MD on 01/23/2022 4:17 PM AKDT Station ID: [id number]
== END 2022-01-23 12:27 | disposition home or self-care (01) ==
LOC: DI 12:26
PROVIDERS: ATTEND Family Medicine
DX: R10.9 Unspecified abdominal pain (principal); K92.1 Melena
CPT/HCPCS: 74177; Q9967

== ENCOUNTER 2022-08-28 09:40 | Outpatient (CLI) | payer MEDICAID ==
--- NOTE | 2022-08-28 18:46 | Ultrasound Report ---
PROCEDURE: Abdomen Limited INDICATIONS: SUBCUTANEROUS MASS LOWER BACK TECHNIQUE: Real-time focused scanning was performed of the abdomen, with image documentation. COMPARISON: CT of abdomen and pelvis dated 01/23/2022. FINDINGS: Limited ultrasound examination of midline lower back at patient's reported area of palpable lump show s a well-circumscribed 1.8 x 0.9 x 1.7 cm Isoechoic nodule in subcutaneous soft tissue and show no in ternal vascularity. IMPRESSION: Finding most consistent with a 1.8 x 0.9 x 1.7 cm lipoma in mid lower back soft tissue. Reviewed by: Lemuel Guerra MD on 08/28/2022 6:44 PM PDT Approved by: Lemuel Guerra MD on 08/28/2022 6:44 PM PDT Station ID: [id number]
== END 2022-08-28 09:41 | disposition home or self-care (01) ==
LOC: DI 09:40
PROVIDERS: ATTEND Physician Assistant
DX: R22.2 Localized swelling, mass and lump, trunk (principal)

== ENCOUNTER 2023-01-07 11:40 | Emergency (ER) | payer MEDICAID ==
[2023-01-07 11:57] VITALS: BP 134/79
[2023-01-07 12:17] LABS: BASOPHILS # (AUTO) 0.1 10^3/uL (0.0-0.1); BASOPHILS % (AUTO) 1.1 %; EOSINOPHILS # (AUTO) 0.5 10^3/uL (0.0-0.7); EOSINOPHILS % (AUTO) 7.6 %; HCT - HEMATOCRIT 43.3 % (37.0-47.0); HGB - HEMOGLOBIN 14.1 g/dL (12.0-16.0); LYMPHOCYTES # (AUTO) 1.7 10^3/uL (1.5-3.5); LYMPHOCYTES % (AUTO) 27.8 %; MEAN CORPUSCULAR HEMOGLOBIN 24.9 pg (27.0-31.0); MEAN CORPUSCULAR HGB CONC 32.6 g/dL (32.0-36.0); MEAN CORPUSCULAR VOLUME 76.5 fL (81.0-99.0); MEAN PLATELET VOLUME 9.6 fL (7.9-10.8); MONOCYTES # (AUTO) 0.4 10^3/uL (0.0-1.0); MONOCYTES % (AUTO) 6.7 %; NEUTROPHILS # (AUTO) 3.5 10^3/uL (1.5-6.6); NEUTROPHILS % (AUTO) 56.5 %; PLT - PLATELET COUNT 212 10^3/uL (130-450); RED BLOOD COUNT 5.66 10^6/uL (4.20-5.40); RED CELL DISTRIBUTION WIDTH 13.2 % (12.0-15.0); WHITE BLOOD COUNT 6.2 x10^3/uL (4.8-10.8)
[2023-01-07 12:19] LABS: BILIRUBIN,URINE NEGATIVE (NEGATIVE); GLUCOSE, URINE (UA) NEGATIVE (NEGATIVE); KETONES,URINE (UA) NEGATIVE (NEGATIVE); LEUKOCYTE ESTERASE, URINE NEGATIVE (NEGATIVE); NITRITE,URINE NEGATIVE (NEGATIVE); OCCULT BLOOD,URINE NEGATIVE (NEGATIVE); PROTEIN,URINE NEGATIVE (NEGATIVE); UROBILINOGEN,URINE 0.2 (NORMAL) E.U./dL (NORMAL)
[2023-01-07 12:21] LABS: CLARITY,URINE CLEAR (CLEAR); HCG UR QUAL NEGATIVE
[2023-01-07 12:31] LABS: ALBUMIN 4.5 g/dL (3.2-5.5); ALBUMIN/GLOBULIN RATIO 1.5 (1.0-2.2); BILIRUBIN,TOTAL 0.5 mg/dL (0.2-1.0); CALCIUM 9.5 mg/dL (8.5-10.3); CREATININE 0.9 mg/dL (0.4-1.0); POTASSIUM 3.9 mmol/L (3.5-5.0); TOTAL PROTEIN 7.5 g/dL (6.7-8.2)
--- NOTE | 2023-01-07 13:10 | ED Physician Documentation ---
PD HPI ABD PAIN - Stated complaint Stated Complaint: BLOOD IN STOOL - Chief complaint Chief Complaint: Abd Pain - History obtained from History obtained from: Patient - Additional information Additional information: 22-year-old woman has been having problems with some bloody stools and mucousy stools for the last year. About a year ago she had a CT showing diffuse colitis. She was lost to follow-up for a colonoscopy that she is scheduled. Yesterday had more bleeding than usual and was urged by her girlfriend to seek evaluation. She has had ongoing abdominal pain, sometimes right upper quadrant, sometimes lower abdomen. No family history of inflammatory bowel disease. No unintended weight gain or loss. 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 : None HEENT: None Psych: Depression, Anxiety, Bipolar disorder, Panic attacks, ADD/ADHD, Other Musculoskeletal: None Derm: None - Past Surgical History Past Surgical History: No - Present Medications Home Medications: Ambulatory Orders Medication Instructions Recorded Confirmed Ferrous Sulfate 325 mg PO DAILY 08/26/21 08/26/21 Guanfacine HCl [Intuniv] 1 mg PO BID 08/26/21 08/26/21 LORazepam [Ativan] 0.5 mg PO BID #6 tablet 08/26/21 Melatonin 5 mg PO DAILY 08/26/21 08/26/21 Quetiapine Fumarate [Seroquel] 200 mg PO HS 08/26/21 08/26/21 Mesalamine [Asacol Hd] 800 mg PO TID #90 tab 01/07/23 - Allergies Allergies/Adverse Reactions: Allergies Allergy/AdvReac Type Severity Reaction Status Date / Time nut - unspecified Allergy Edema Verified 01/07/23 11:57 - Social History Does the pt smoke?: No Smoking Status: Never smoker Does the pt drink ETOH?: No Does the pt have substance abuse?: Yes - Immunizations Immunizations are current?: Yes - POLST Patient has POLST: No POLST Status: Full Code PD ED PE NORMAL - Vitals Vital signs reviewed: Yes - General General: Alert and oriented X 3, No acute distress - Abdomen Abdomen: Normal bowel sounds, Soft, Non tender - Neuro Neuro: Alert and oriented X 3, Normal speech Results - Vitals Vitals: Vital Signs - 24 hr 01/07/23 11:53 Temperature 36.8 C Heart Rate 103 H Respiratory 16 Rate Blood Pressure 134/79 H O2 Saturation 99 Oxygen O2 Source Room air - Labs Labs: Laboratory Tests 01/07/23 01/07/23 01/07/23 12:12 12:13 12:13 WBC 6.2 RBC 5.66 H Hgb 14.1 Hct 43.3 MCV 76.5 L MCH 24.9 L MCHC 32.6 RDW 13.2 Plt Count 212 MPV 9.6 Neut # (Auto) 3.5 Lymph # (Auto) 1.7 [place] # (Auto) 0.4 Eos # (Auto) 0.5 Baso # (Auto) 0.1 Absolute Nucleated RBC 0.00 Nucleated RBC % 0.0 Sodium 137 Potassium 3.9 Chloride 106 Carbon Dioxide 26 Anion Gap 5.0 L BUN 14 Creatinine 0.9 Estimated GFR (MDRD) 78 L Glucose 93 Calcium 9.5 Total Bilirubin 0.5 AST 15 ALT 12 Alkaline Phosphatase 44 Total Protein 7.5 Albumin 4.5 Globulin 3.0 Albumin/Globulin Ratio 1.5 Lipase 36 Urine Color YELLOW Urine Clarity CLEAR Urine pH 6.0 Ur Specific [place] 1.020 Urine Protein NEGATIVE Urine Glucose (UA) NEGATIVE Urine Ketones NEGATIVE Urine Occult Blood NEGATIVE Urine Nitrite NEGATIVE Urine Bilirubin NEGATIVE Urine Urobilinogen 0.2 (NORMAL) Ur Leukocyte Esterase NEGATIVE Ur Microscopic Review NOT INDICATED Urine Culture Comments NOT INDICATED Urine HCG, Qual NEGATIVE PD Medical Decision Making - ED course ED course: CBC reviewed showing no anemia. CMP reviewed and unremarkable. Urinalysis negative. Urine test negative. I reviewed the CT from last year. Her findings are certainly concerning for inflammatory bowel disease. That said she is not losing a medically significant amount of blood. Discussed with her the need for follow-up colonoscopy for definitive diagnosis and she voices understanding. We will start some mesalamine in the meantime for potential symptom control. Departure - Departure Disposition: 01 Home, Self Care Clinical Impression: IBD (inflammatory bowel disease) Condition: Good Record reviewed to determine appropriate education?: Yes Instructions: ED Colitis Ulcerative, ED Inflam Bowel Disease Crohn Prescriptions: Mesalamine [Asacol Hd] 800 mg PO TID #90 tab Comments: As discussed, between your symptoms and the CAT scan from last year it is concerning that she may have inflammatory bowel disease such as Crohn's disease or ulcerative colitis. It is important to follow-up for colonoscopy as soon as you are able to schedule it. There is no other way to make a definitive diagnoses of these things. In the meantime I am starting some mesalamine which is a anti-inflammatory agent for the gut to see if it is helpful. For new or worsening symptoms.
== END 2023-01-07 13:25 | disposition home or self-care (01) ==
LOC: ED 11:40
DX: K52.3 Indeterminate colitis (principal)
CPT/HCPCS: 36415; 80053; 81001; 81003; 81025; 83690; 85025; 87086; 99283; 99284